=== PATIENT | female | born 1990 | race African-American/Black ===

== ENCOUNTER 2018-01-23 13:40 | Day surgery (SDC) | payer OTHER ==
[~2018-01-23] VITALS: Ht 154.9 cm; Wt 67.7 kg
[2018-01-23] MEDS ORDERED: CARAFATE 1GM1 G PO (13:58)
[2018-01-23] MEDS ORDERED: PRISTIQ100 MG PO (13:58)
[2018-01-23] MEDS ORDERED: ZANTAC 150MG T150 MG PO (13:58)
[2018-01-23] MEDS ORDERED: CLARITIN 1010 MG/TAB PO (13:59)
[2018-01-23] MEDS ORDERED: ZOFRAN ODT4 MG PO (13:59)
[2018-01-23] MEDS ORDERED: PROAIR HFA0.09 MG/AC IH (14:00)
[2018-01-23] MEDS ORDERED: TYLENOL 500MG500 MG PO (14:00)
[2018-01-23] MEDS ORDERED: ALBUTEROL1.25 MG/3 IH (14:01)
[2018-01-23 14:38] VITALS: BP 108/87; PULSE 83; TEMP 97.6
[2018-01-23] MEDS ORDERED: KLONOPIN 1MG1 MG PO (14:44)
[2018-01-23] MEDS ORDERED: PRILOSEC 20MG20 MG PO (15:33)
[2018-01-23 15:43] VITALS: BP 112/82; PULSE 68; TEMP 98.2
[2018-01-23 16:00] VITALS: BP 114/86; PULSE 67
[2018-01-23 16:15] VITALS: BP 115/80; PULSE 81
== END 2018-01-23 16:25 | disposition home or self-care (01) ==
LOC: SDCO 13:40
DX: K31.2 Hourglass stricture and stenosis of stomach (principal); K28.7 Chronic gastrojejunal ulcer without hemorrhage or perforation; Z98.84 Bariatric surgery status
CPT/HCPCS: C1726; J2250; J2405; J3010; J7030